=== PATIENT | male | born 1955 | race Caucasian/White ===

== ENCOUNTER 2019-05-12 05:04 | Inpatient (IN) ==
[2019-05-12 05:52] LABS: Basophils # 0.1 K/mcL (0.0-0.2); Basophils % 0.6 %; Eosinophils # 0.2 K/mcL (0.0-0.6); Eosinophils % 2.2 %; Hematocrit 46.3 % (37.5-50.1); Hemoglobin 15.3 g/dL (12.9-16.9); Immature Granulocytes % 0.4 % (0-4); Lymphocytes # 1.7 K/mcL (0.6-4.6); Mean Corpuscular Volume 93.9 fL (83.0-100.0); Mean Platelet Volume 10.4 fL (9.4-12.4); Monocytes # 1.1 K/mcL (0.0-1.3); Monocytes % 14.1 %; Platelet Count 243 K/mcL (140-400); Red Blood Count 4.93 M/mcL (4.19-5.50); Red Cell Distribution Width 13.5 % (11.5-14.5); Segmented Neutrophils % 61.7 %
[2019-05-12 05:59] LABS: INR 1.3; Prothrombin Time 15.3 Seconds (9.4-12.1)
[2019-05-12] MEDS ORDERED: Tdap (Boostrix) Vaccine 0.5 ML SYRINGE IM ONE (06:01)
[2019-05-12 06:02] LABS: Activated Partial Thrombo Time 27.9 Seconds (26.0-36.0)
[2019-05-12 06:11] LABS: BUN/Creatinine Ratio 23 (6-26); Blood Urea Nitrogen 32 mg/dL (8-23); Calcium 10.1 mg/dL (8.6-10.3); Carbon Dioxide 21 mEq/L (23-29); Chloride 96 mEq/L (98-107); Glucose 463 mg/dL (70-105); Osmolality,Calculated 305 (280-300); Potassium 4.5 mEq/L (3.5-5.1); Sodium 134 mEq/L (136-145); eGFR For African Americans > 60 (> 60); eGFR For Non-African Americans 52 (> 60)
[2019-05-12 06:13] LABS: Troponin I < 0.03 ng/mL (< 0.04)
[2019-05-12] MEDS ORDERED: 0.9 % Sodium Chloride 1,000 ML IVC ONE ×2 (06:24)
[2019-05-12 06:26] LABS: Thyroid Stimulating Hormone 0.698 mcIU/mL (0.340-5.600)
[2019-05-12 06:42] LABS: Bilirubin,Urine Negative (Negative); Blood,Urine Trace-lysed (Negative); Clarity,Urine Clear (Clear); Color,Urine Yellow (Yellow); Glucose,Urine (UA) >=1000 mg/dL (Normal); Ketones,Urine 15 mg/dL (Negative); Leukocyte Esterase,Urine Negative (Negative); Nitrite,Urine Negative (Negative); Protein,Urine 100 mg/dL (Neg-Trace); Urobilinogen,Urine Normal (Normal)
[2019-05-12 06:45] LABS: Bacteria,Urine None Seen per hpf (None-Few); Hyaline Casts,Urine None Seen per lpf (None-Few); RBC,Urine 0-3 per hpf (0-3); Squamous Epithelial Cell,Urine Moderate per lpf (None-Few); WBC,Urine 0-3 per hpf (0-3)
[2019-05-12] MEDS ORDERED: Insulin LISPRO 300 UNITS/3 ML VIAL SQ ONE (07:19)
[2019-05-12 08:13] LABS: VBG HCO3 23 mEq/L (21-27); VBG PCO2 36 mmHg (41-51); VBG PH 7.41 pH Units (7.32-7.42); VBG PO2 178 mmHg (25-50)
[2019-05-12] MEDS ORDERED: Naloxone 0.4 MG/ML INJ IVP PRN (08:32)
[2019-05-12] MEDS ORDERED: Budesonide Neb 0.5 MG/2 ML IH PRN (08:37)
[2019-05-12] MEDS ORDERED: Acetaminophen 325 MG TABLET PO PRN (08:37)
[2019-05-12] MEDS ORDERED: D5% in Water 1,000 ML IVC PRN (08:40)
[2019-05-12] MEDS ORDERED: Dextrose Gel 15 GM/37.5 ML TUBE PO PRN ×2 (08:40)
[2019-05-12] MEDS ORDERED: *HR* Dextrose 50 % in Water (Syg) 50 ML SYRINGE IVP PRN (08:40)
[2019-05-12] MEDS ORDERED: CycloSPORINE (SandIMMUNE) 100 MG CAPSULE PO SCH (08:45)
[2019-05-12] MEDS ORDERED: NON-FORMULARY MEDICATION 1 EACH EACH (Pravastatin Sodium [Pravachol] 20 MG) PO SCH (09:00)
[2019-05-12] MEDS ORDERED: Mycophenolate Sodium (DR) 180 MG TABLET.DR PO SCH (09:00)
[2019-05-12] MEDS ORDERED: Docusate Oral Soln 100 MG/10 ML UDC PO SCH (09:00)
[2019-05-12 09:46] LABS: Estimated Average Glucose 197 mg/dl
[2019-05-12] MEDS ORDERED: Insulin DETEMIR 100 UNIT/ML X5UNITS SQ ONE (09:48)
[2019-05-12] MEDS ORDERED: Docusate Oral Soln 100 MG/10 ML UDC GTUBE PRN (10:10)
[2019-05-12] MEDS: Insulin LISPRO 300 UNITS/3 ML VIAL SQ SCH ×5 (11:24→23:55)
[2019-05-12 13:46] LABS: Alanine Aminotransferase 79 Units/L (7-52); Albumin 3.5 g/dL (3.5-5.7); Albumin/Globulin Ratio 1.1 (1.1-2.2); Alkaline Phosphatase 106 Units/L (34-104); Aspartate Amino Transferase 37 Units/L (13-39); BUN/Creatinine Ratio 27 (6-26); Bilirubin,Total 0.9 mg/dL (0.3-1.0); Blood Urea Nitrogen 25 mg/dL (8-23); Calcium 9.3 mg/dL (8.6-10.3); Carbon Dioxide 24 mEq/L (23-29); Chloride 103 mEq/L (98-107); Globulin 3.3 g/dL (2.4-3.5); Glucose 300 mg/dL (70-105); Magnesium 1.7 mg/dL (1.6-2.6); Osmolality,Calculated 300 (280-300); Potassium 4.1 mEq/L (3.5-5.1); Sodium 137 mEq/L (136-145); Total Protein 6.8 g/dL (6.4-8.9); eGFR For African Americans > 60 (> 60); eGFR For Non-African Americans > 60 (> 60)
[2019-05-12] MEDS: CYCLOSPORINE 25 MG GTUBE SCH ×2 (14:27→21:22)
[2019-05-12] MEDS ORDERED: E-Z-PAQUE (BARIUM SULF) SUSP 1 BOTTLE PO ONE (15:28)
[2019-05-12] MEDS ORDERED: E-Z-HD (BARIUM SULF) SUSPENSION PO ONE (15:28)
[2019-05-12] MEDS ORDERED: Barium Sulfate 1 TAB TABLET PO ONE (15:28)
[2019-05-12] MEDS: 0.9 % Sodium Chloride 1,000 ML IVC SCH (21:07)
[2019-05-12] MEDS: Mycophenolate Sodium (DR) 180 MG TABLET.DR PO SCH (21:07)
[2019-05-12] MEDS: Insulin DETEMIR 100 UNIT/ML X5UNITS SQ SCH (21:33)
[2019-05-13 02:03] LABS: Basophils % 0.5 %; Eosinophils # 0.1 K/mcL (0.0-0.6); Eosinophils % 2.3 %; Hematocrit 45.2 % (37.5-50.1); Hemoglobin 14.6 g/dL (12.9-16.9); Immature Granulocytes % 0.2 % (0-4); Lymphocytes # 1.2 K/mcL (0.6-4.6); Mean Corpuscular HGB Conc 32.3 g/dL (31.6-35.5); Mean Corpuscular Hemoglobin 30.6 pg (28.0-33.3); Mean Corpuscular Volume 94.8 fL (83.0-100.0); Mean Platelet Volume 10.3 fL (9.4-12.4); Monocytes # 0.8 K/mcL (0.0-1.3); Monocytes % 14.4 %; Neutrophils # 3.6 K/mcL (1.6-8.9); Platelet Count 192 K/mcL (140-400); Red Blood Count 4.77 M/mcL (4.19-5.50); Red Cell Distribution Width 13.5 % (11.5-14.5); Segmented Neutrophils % 62.6 %; White Blood Count 5.8 K/mcL (4.3-11.1)
[2019-05-13 02:12] LABS: INR 1.4
[2019-05-13 02:23] LABS: BUN/Creatinine Ratio 22 (6-26); Blood Urea Nitrogen 17 mg/dL (8-23); Calcium 9.6 mg/dL (8.6-10.3); Carbon Dioxide 25 mEq/L (23-29); Chloride 104 mEq/L (98-107); Glucose 195 mg/dL (70-105); Osmolality,Calculated 293 (280-300); Sodium 138 mEq/L (136-145); eGFR For African Americans > 60 (> 60); eGFR For Non-African Americans > 60 (> 60)
[2019-05-13] MEDS: Insulin LISPRO 300 UNITS/3 ML VIAL SQ SCH ×6 (05:30→17:50)
[2019-05-13] MEDS: Mycophenolate Sodium (DR) 180 MG TABLET.DR PO SCH ×2 (08:05→20:51)
[2019-05-13] MEDS: Aspirin 81 MG TAB.CHEW PO SCH (08:05)
[2019-05-13] MEDS: CYCLOSPORINE 25 MG GTUBE SCH (08:18)
[2019-05-13] MEDS ORDERED: Ipratropium/Albuterol Neb 3 ML IH PRN (13:19)
[2019-05-13] MEDS: CYCLOSPORINE 25 MG PO SCH (20:52)
[2019-05-13] MEDS: Insulin DETEMIR 100 UNIT/ML X5UNITS SQ SCH (20:53)
[2019-05-13] MEDS: 0.9 % Sodium Chloride 1,000 ML IVC SCH (22:55)
[2019-05-14] MEDS: Insulin LISPRO 300 UNITS/3 ML VIAL SQ SCH ×7 (00:43→18:24)
[2019-05-14] MEDS: Mycophenolate Sodium (DR) 180 MG TABLET.DR PO SCH ×2 (08:30→20:10)
[2019-05-14] MEDS: Aspirin 81 MG TAB.CHEW PO SCH (08:30)
[2019-05-14] MEDS: CYCLOSPORINE 25 MG PO SCH ×2 (08:31→22:46)
[2019-05-14] MEDS ORDERED: *HR* Warfarin 4 MG TABLET PO ONE (18:00)
[2019-05-14] MEDS: Warfarin perPT PO SCH (18:21)
[2019-05-14] MEDS: Insulin DETEMIR 100 UNIT/ML X5UNITS SQ SCH (22:33)
[2019-05-15] MEDS: Insulin LISPRO 300 UNITS/3 ML VIAL SQ SCH ×7 (00:23→18:30)
[2019-05-15 03:35] LABS: Basophils # 0.1 K/mcL (0.0-0.2); Basophils % 0.9 %; Eosinophils # 0.1 K/mcL (0.0-0.6); Eosinophils % 1.8 %; Hematocrit 46.9 % (37.5-50.1); Hemoglobin 15.8 g/dL (12.9-16.9); Immature Granulocytes % 0.4 % (0-4); Lymphocytes # 0.9 K/mcL (0.6-4.6); Lymphocytes % 13.3 %; Mean Corpuscular HGB Conc 33.7 g/dL (31.6-35.5); Mean Corpuscular Hemoglobin 31.2 pg (28.0-33.3); Mean Corpuscular Volume 92.5 fL (83.0-100.0); Mean Platelet Volume 10.4 fL (9.4-12.4); Monocytes # 1.2 K/mcL (0.0-1.3); Monocytes % 18.1 %; Neutrophils # 4.4 K/mcL (1.6-8.9); Platelet Count 200 K/mcL (140-400); Red Blood Count 5.07 M/mcL (4.19-5.50); Red Cell Distribution Width 13.7 % (11.5-14.5); Segmented Neutrophils % 65.5 %; White Blood Count 6.7 K/mcL (4.3-11.1)
[2019-05-15 03:48] LABS: INR 1.2; Prothrombin Time 13.4 Seconds (9.4-12.1)
[2019-05-15 03:52] LABS: BUN/Creatinine Ratio 20 (6-26); Blood Urea Nitrogen 17 mg/dL (8-23); Calcium 9.5 mg/dL (8.6-10.3); Carbon Dioxide 24 mEq/L (23-29); Chloride 102 mEq/L (98-107); Glucose 154 mg/dL (70-105); Magnesium 1.5 mg/dL (1.6-2.6); Osmolality,Calculated 289 (280-300); Phosphorous 3.1 mg/dL (2.7-4.5); Potassium 3.7 mEq/L (3.5-5.1); Sodium 137 mEq/L (136-145); eGFR For African Americans > 60 (> 60); eGFR For Non-African Americans > 60 (> 60)
[2019-05-15 04:18] LABS: Platelet Estimate Normal (Normal)
[2019-05-15] MEDS: Mycophenolate Sodium (DR) 180 MG TABLET.DR PO SCH ×2 (09:32→21:16)
[2019-05-15] MEDS: Aspirin 81 MG TAB.CHEW PO SCH (09:32)
[2019-05-15] MEDS: CYCLOSPORINE 25 MG PO SCH ×2 (09:40→21:17)
[2019-05-15] MEDS ORDERED: *HR* Heparin 5,000 UNIT/ML VIAL IVP PRN ×2 (10:36)
[2019-05-15] MEDS ORDERED: *HR* Heparin 5,000 UNIT/ML VIAL IVP ONE (10:36)
[2019-05-15 12:01] LABS: Hematocrit 44.7 % (37.5-50.1); Hemoglobin 15.3 g/dL (12.9-16.9); Mean Corpuscular HGB Conc 34.2 g/dL (31.6-35.5); Mean Corpuscular Hemoglobin 31.5 pg (28.0-33.3); Mean Platelet Volume 10.3 fL (9.4-12.4); Platelet Count 224 K/mcL (140-400); Red Blood Count 4.86 M/mcL (4.19-5.50); Red Cell Distribution Width 13.6 % (11.5-14.5); White Blood Count 8.1 K/mcL (4.3-11.1)
[2019-05-15] MEDS: Heparin 25,000 UNIT/250 ML D5W 25,000 UNIT/250 ML IV.SOLN IVC SCH (12:14)
[2019-05-15 12:17] LABS: INR 1.1; Prothrombin Time 12.5 Seconds (9.4-12.1)
[2019-05-15] MEDS ORDERED: *HR* Warfarin 7.5 MG TABLET PO ONE (18:00)
[2019-05-15] MEDS: Warfarin perPT PO SCH (18:31)
[2019-05-15] MEDS: Insulin DETEMIR 100 UNIT/ML X5UNITS SQ SCH (21:23)
[2019-05-16] MEDS: Insulin LISPRO 300 UNITS/3 ML VIAL SQ SCH ×8 (00:50→23:46)
[2019-05-16 00:52] LABS: INR 1.2; Prothrombin Time 13.5 Seconds (9.4-12.1)
[2019-05-16] MEDS: Heparin 25,000 UNIT/250 ML D5W 25,000 UNIT/250 ML IV.SOLN IVC SCH (06:36)
[2019-05-16] MEDS: Aspirin 81 MG TAB.CHEW PO SCH (09:22)
[2019-05-16] MEDS: Mycophenolate Sodium (DR) 180 MG TABLET.DR PO SCH ×2 (09:23→21:23)
[2019-05-16] MEDS: CYCLOSPORINE 25 MG PO SCH ×2 (09:27→21:23)
[2019-05-16] MEDS: Warfarin perPT PO SCH (17:46)
[2019-05-16] MEDS ORDERED: *HR* Warfarin 7.5 MG TABLET PO ONE (18:00)
[2019-05-16] MEDS ORDERED: *HR* Labetalol 20 MG/4 ML SYRINGE IVP ONE ×2 (18:12→18:34)
[2019-05-16] MEDS: *HR* Labetalol 20 MG/4 ML SYRINGE IVP ONE ×2 (18:13→18:17)
[2019-05-16] MEDS: Insulin DETEMIR 100 UNIT/ML X5UNITS SQ SCH (21:24)
[2019-05-17 00:59] LABS: Basophils % 0.4 %; Eosinophils # 0.1 K/mcL (0.0-0.6); Eosinophils % 1.2 %; Hematocrit 44.5 % (37.5-50.1); Hemoglobin 14.4 g/dL (12.9-16.9); Immature Granulocytes % 0.3 % (0-4); Lymphocytes # 1.1 K/mcL (0.6-4.6); Lymphocytes % 14.1 %; Mean Corpuscular HGB Conc 32.4 g/dL (31.6-35.5); Mean Corpuscular Hemoglobin 30.7 pg (28.0-33.3); Mean Corpuscular Volume 94.9 fL (83.0-100.0); Mean Platelet Volume 10.3 fL (9.4-12.4); Monocytes # 0.9 K/mcL (0.0-1.3); Neutrophils # 5.5 K/mcL (1.6-8.9); Platelet Count 195 K/mcL (140-400); Red Blood Count 4.69 M/mcL (4.19-5.50); Red Cell Distribution Width 13.6 % (11.5-14.5); White Blood Count 7.7 K/mcL (4.3-11.1)
[2019-05-17 01:08] LABS: INR 1.2; Prothrombin Time 13.9 Seconds (9.4-12.1)
[2019-05-17] MEDS: Heparin 25,000 UNIT/250 ML D5W 25,000 UNIT/250 ML IV.SOLN IVC SCH ×2 (01:15→19:57)
[2019-05-17 01:20] LABS: BUN/Creatinine Ratio 24 (6-26); Blood Urea Nitrogen 20 mg/dL (8-23); Calcium 9.4 mg/dL (8.6-10.3); Carbon Dioxide 22 mEq/L (23-29); Chloride 102 mEq/L (98-107); Glucose 294 mg/dL (70-105); Magnesium 1.6 mg/dL (1.6-2.6); Osmolality,Calculated 291 (280-300); Phosphorous 3.2 mg/dL (2.7-4.5); Potassium 3.9 mEq/L (3.5-5.1); Sodium 134 mEq/L (136-145); eGFR For African Americans > 60 (> 60); eGFR For Non-African Americans > 60 (> 60)
[2019-05-17] MEDS: Insulin LISPRO 300 UNITS/3 ML VIAL SQ SCH ×6 (05:53→18:09)
[2019-05-17] MEDS: Mycophenolate Sodium (DR) 180 MG TABLET.DR PO SCH ×2 (09:01→20:08)
[2019-05-17] MEDS: Aspirin 81 MG TAB.CHEW PO SCH (09:01)
[2019-05-17] MEDS: CYCLOSPORINE 25 MG PO SCH ×2 (09:02→20:09)
[2019-05-17] MEDS ORDERED: *HR* Warfarin 10 MG TABLET PO ONE (18:00)
[2019-05-17] MEDS: Warfarin perPT PO SCH (18:03)
[2019-05-17] MEDS: ALPRAZolam 0.5 MG TABLET PO PRN (20:08)
[2019-05-17] MEDS: Insulin DETEMIR 100 UNIT/ML X5UNITS SQ SCH (20:19)
[2019-05-18] MEDS: Insulin LISPRO 300 UNITS/3 ML VIAL SQ SCH ×7 (03:36→18:13)
[2019-05-18 04:40] LABS: INR 1.4; Prothrombin Time 15.8 Seconds (9.4-12.1)
[2019-05-18 09:36] LABS: Basophils % 0.7 %; Eosinophils # 0.2 K/mcL (0.0-0.6); Eosinophils % 2.6 %; Hematocrit 44.5 % (37.5-50.1); Hemoglobin 15.1 g/dL (12.9-16.9); Immature Granulocytes % 0.5 % (0-4); Lymphocytes # 0.8 K/mcL (0.6-4.6); Mean Corpuscular HGB Conc 33.9 g/dL (31.6-35.5); Mean Corpuscular Hemoglobin 31.3 pg (28.0-33.3); Mean Corpuscular Volume 92.3 fL (83.0-100.0); Mean Platelet Volume 11.1 fL (9.4-12.4); Monocytes # 0.9 K/mcL (0.0-1.3); Monocytes % 14.5 %; Neutrophils # 4.2 K/mcL (1.6-8.9); Platelet Count 195 K/mcL (140-400); Red Blood Count 4.82 M/mcL (4.19-5.50); Red Cell Distribution Width 13.6 % (11.5-14.5); Segmented Neutrophils % 68.7 %; White Blood Count 6.1 K/mcL (4.3-11.1)
[2019-05-18] MEDS: Aspirin 81 MG TAB.CHEW PO SCH (09:47)
[2019-05-18] MEDS: Insulin DETEMIR 100 UNIT/ML X5UNITS SQ SCH ×2 (09:47→20:41)
[2019-05-18] MEDS: Mycophenolate Sodium (DR) 180 MG TABLET.DR PO SCH ×2 (09:47→20:40)
[2019-05-18 09:54] LABS: Troponin I < 0.03 ng/mL (< 0.04)
[2019-05-18] MEDS: *HR* Digoxin 0.125 MG TABLET PO SCH (11:10)
[2019-05-18] MEDS: CYCLOSPORINE 25 MG PO SCH ×2 (11:10→20:41)
[2019-05-18 11:24] LABS: Magnesium 1.4 mg/dL (1.6-2.6); Phosphorous 3.8 mg/dL (2.7-4.5)
[2019-05-18] MEDS ORDERED: Haloperidol Lactate 5 MG/ML VIAL IVP ONE (12:27)
[2019-05-18 17:07] LABS: BUN/Creatinine Ratio 20 (6-26); Blood Urea Nitrogen 20 mg/dL (8-23); Calcium 9.8 mg/dL (8.6-10.3); Carbon Dioxide 26 mEq/L (23-29); Chloride 101 mEq/L (98-107); Glucose 217 mg/dL (70-105); Osmolality,Calculated 291 (280-300); Potassium 4.4 mEq/L (3.5-5.1); Sodium 136 mEq/L (136-145); eGFR For African Americans > 60 (> 60); eGFR For Non-African Americans > 60 (> 60)
[2019-05-18] MEDS ORDERED: *HR* Warfarin 10 MG TABLET PO ONE (18:00)
[2019-05-18] MEDS: Heparin 25,000 UNIT/250 ML D5W 25,000 UNIT/250 ML IV.SOLN IVC SCH (18:12)
[2019-05-18] MEDS: Warfarin perPT PO SCH (18:13)
[2019-05-18] MEDS: ALPRAZolam 0.5 MG TABLET PO PRN (20:40)
[2019-05-18] MEDS ORDERED: *HR* LORazepam 2 MG/ML VIAL IVP ONE (20:51)
[2019-05-19] MEDS: Insulin LISPRO 300 UNITS/3 ML VIAL SQ SCH ×7 (00:55→22:23)
[2019-05-19 07:37] LABS: Hematocrit 48.3 % (37.5-50.1); Hemoglobin 16.3 g/dL (12.9-16.9); Mean Corpuscular HGB Conc 33.7 g/dL (31.6-35.5); Mean Corpuscular Hemoglobin 31.2 pg (28.0-33.3); Mean Corpuscular Volume 92.5 fL (83.0-100.0); Mean Platelet Volume 11.1 fL (9.4-12.4); Platelet Count 239 K/mcL (140-400); Red Blood Count 5.22 M/mcL (4.19-5.50); Red Cell Distribution Width 13.6 % (11.5-14.5)
[2019-05-19 07:57] LABS: BUN/Creatinine Ratio 20 (6-26); Blood Urea Nitrogen 21 mg/dL (8-23); Calcium 10.4 mg/dL (8.6-10.3); Carbon Dioxide 25 mEq/L (23-29); Chloride 100 mEq/L (98-107); Glucose 135 mg/dL (70-105); Magnesium 1.6 mg/dL (1.6-2.6); Osmolality,Calculated 291 (280-300); Potassium 3.7 mEq/L (3.5-5.1); Sodium 138 mEq/L (136-145); eGFR For African Americans > 60 (> 60); eGFR For Non-African Americans > 60 (> 60)
[2019-05-19 09:39] LABS: INR 1.7; Prothrombin Time 19.3 Seconds (9.4-12.1)
[2019-05-19] MEDS: *HR* Digoxin 0.125 MG TABLET PO SCH (10:16)
[2019-05-19] MEDS: Aspirin 81 MG TAB.CHEW PO SCH (10:16)
[2019-05-19] MEDS: CYCLOSPORINE 25 MG PO SCH ×2 (10:17→22:29)
[2019-05-19] MEDS: Insulin DETEMIR 100 UNIT/ML X5UNITS SQ SCH (10:23)
[2019-05-19] MEDS: Heparin 25,000 UNIT/250 ML D5W 25,000 UNIT/250 ML IV.SOLN IVC SCH (10:28)
[2019-05-19] MEDS ORDERED: 0.9 % Sodium Chloride 500 ML IV ONE (15:07)
[2019-05-19] MEDS: Mycophenolate Sodium (DR) 180 MG TABLET.DR PO SCH ×2 (15:35→22:28)
[2019-05-19 16:04] LABS: Bilirubin,Urine Small (Negative); Blood,Urine Negative (Negative); Clarity,Urine Clear (Clear); Color,Urine Dark Yellow (Yellow); Glucose,Urine (UA) 100 mg/dL (Normal); Ketones,Urine Trace mg/dL (Negative); Leukocyte Esterase,Urine Negative (Negative); Nitrite,Urine Negative (Negative); PH,Urine 5.5 pH Units (5.0-8.0); Protein,Urine 100 mg/dL (Neg-Trace); Specific Gravity,Urine 1.025 (1.010-1.025); Urobilinogen,Urine Normal (Normal)
[2019-05-19 16:19] LABS: Bacteria,Urine None Seen per hpf (None-Few); Squamous Epithelial Cell,Urine Many per lpf (None-Few)
[2019-05-19 16:38] LABS: Hyaline Casts,Urine Few per lpf (None-Few)
[2019-05-19] MEDS ORDERED: Insulin LISPRO 300 UNITS/3 ML VIAL SQ SCH (17:00)
[2019-05-19] MEDS ORDERED: *HR* Warfarin 10 MG TABLET PO ONE (18:00)
[2019-05-19] MEDS: Warfarin perPT PO SCH (20:11)
[2019-05-19] MEDS ORDERED: Insulin DETEMIR 100 UNIT/ML X5UNITS SQ SCH (21:00)
[2019-05-19] MEDS ORDERED: *HR* Promethazine 25 MG/ML VIAL IVP ONE (23:28)
[2019-05-19] MEDS ORDERED: Haloperidol Lactate 5 MG/ML VIAL IVP ONE (23:28)
[2019-05-20] MEDS ORDERED: *HR* Promethazine 25 MG/ML VIAL IVP ONE (00:31)
[2019-05-20 02:32] LABS: Prothrombin Time 22.8 Seconds (9.4-12.1)
[2019-05-20] MEDS: Piperacillin/Tazobactam 3.375 GM in 0.9 % Sodium Chloride Mini Bag 100 ML IVPB SCH ×2 (06:58→13:32)
[2019-05-20] MEDS ORDERED: Insulin LISPRO 300 UNITS/3 ML VIAL SQ SCH (08:00)
[2019-05-20 08:06] VITALS: BP 171/88
[2019-05-20] MEDS ORDERED: Insulin DETEMIR 100 UNIT/ML X5UNITS SQ SCH (09:00)
[2019-05-20] MEDS: Insulin LISPRO 300 UNITS/3 ML VIAL SQ SCH ×2 (09:05→12:53)
[2019-05-20] MEDS: CYCLOSPORINE 25 MG PO SCH (09:06)
[2019-05-20] MEDS: *HR* Digoxin 0.125 MG TABLET PO SCH (09:06)
[2019-05-20] MEDS: Mycophenolate Sodium (DR) 180 MG TABLET.DR PO SCH (09:06)
[2019-05-20] MEDS: Aspirin 81 MG TAB.CHEW PO SCH (09:06)
[2019-05-20] MEDS ORDERED: *HR* Warfarin 7.5 MG TABLET PO ONE (18:00)
== END 2019-05-20 16:47 | DRG 308 ==
LOC: SUATTDRO → EMEROOARM 05:04 → 2NENU 05:04 → SUATTDRO 09:20 → 2NENU 10:15
PROVIDERS: ADMIT Internal Medicine; ATTEND Internal Medicine